=== PATIENT | male | born 1980 | race Caucasian/White ===

== ENCOUNTER 2016-06-19 18:06 | Emergency (ER) | payer BC ==
[2016-06-19 18:17] VITALS: BP 117/63; PULSE 66; RESP 16; TEMP 97.4
[2016-06-19] MEDS ORDERED: DIPH,PERTUS(ACELL)TETVAC-LF 0.5 ML VIAL IM ONE (18:18)
--- NOTE | 2016-06-19 18:25 | ED ---
General Adult HPI - General Chief complaint: Wound/Laceration Stated complaint: laceration left index finger Time Seen by Provider: 06/19/16 18:18 Source: patient, RN notes reviewed Mode of arrival: ambulatory Limitations: no limitations - History of Present Illness Initial comments: This is a 35-year-old male who presents with a laceration to the left middle finger. Patient states he was doing yard work about one hour ago and was using a machete to cut branches when he accidentally hit his left middle finger. Patient denies any numbness/weakness or tingling. Patient is unsure if he is up -to-date on his tetanus shot. Patient is still able to use the left hand and was wearing gloves when this happened. Patient is not on any anticoagulants. Patient denies any recent fever, chills, shortness breath, chest pain, abdominal pain, nausea/vomiting/diarrhea, back pain, hematuria, headache, or visual changes, or any other complaints. - Related Data Home Medications Medication Instructions Recorded Confirmed Fexofenadine/Pseudoephedrine 1 each PO BID 03/22/16 03/22/16 [Joselyn-D 12 Hour Tablet] Previous Rx's Medication Instructions Recorded Albuterol Inhaler [Ventolin Hfa 1 - 2 puff INHALATION Q4-6H PRN #1 03/22/16 Inhaler] inhaler Albuterol Nebulized [Ventolin 2.5 mg INHALATION Q4H #20 nebu 03/22/16 Nebulized] Azithromycin [Zithromax] 250 mg PO DIRECTED #6 tab 03/22/16 predniSONE 50 mg PO DAILY #5 tab 03/22/16 Cephalexin [Keflex] 500 mg PO Q12HR 5 Days 06/19/16 Allergies Allergy/AdvReac Type Severity Reaction Status Date / Time Milk Containing Products Allergy Unknown Verified 03/22/16 11:15 [Dairy] Childhood Review of Systems ROS Statement: Those systems with pertinent positive or pertinent negative responses have been documented in the HPI. ROS Other: All systems not noted in ROS Statement are negative. Past Medical History Past Medical History: No Reported History History of Any Multi-Drug Resistant Organisms: None Reported Past Surgical History: Ear Surgery Additional Past Surgical History / Comment(s): ear, nose throat Past Psychological History: No Psychological Hx Reported Smoking Status: Former smoker Past Alcohol Use History: None Reported Past Drug Use History: None Reported General Exam - General Exam Comments Initial Comments: General: The patient is awake and alert, in no distress, and does not appear acutely ill. Neck: The neck is supple, there is no tenderness or JVD. Cardiovascular: There is a regular rate and rhythm. No murmur, rub or gallop is appreciated. Respiratory: Lungs are clear to auscultation, respirations are non-labored, breath sounds are equal. No wheezes, stridor, rales, or rhonchi. Musculoskeletal: Patient has full range of motion, strength 5/5 and Sensation intact. Radial pulses 2+ bilaterally and capillary refill is normal at less than 2 seconds. Neurological: A&O x 3. CN II-XII intact, There are no obvious motor or sensory deficits. Coordination appears grossly intact. Speech is normal. Skin: There is an approximately 3 cm laceration to the patient's third digit of the left hand over the lateral aspect of the PIP joint. Skin is warm and dry and no rashes are noted. Psychiatric: Normal mood and affect. Limitations: no limitations Course Vital Signs 06/19/16 18:14 Temperature 97.4 F L Pulse Rate 66 Respiratory 16 Rate Blood Pressure 117/63 O2 Sat by Pulse 98 Oximetry Procedures - Procedures Initial comment: The skin was anesthetized with 1% lidocaine. The laceration was then cleansed with Betadine and irrigated with normal saline. The wound was inspected, and there was no evidence of injury to deep structures. No foreign body was noted in the wound. A total of 10 skin sutures were placed utilizing 5-0 Ethilon. Laceration is approx 3 cm. Medical Decision Making - Medical Decision Making This is a 35-year-old male presents with laceration to left middle finger. On physical exam patient has full range of motion, strength 5/5 and intact. Radial pulses are 2+ bilaterally and capillary refill is normal at less than 2 seconds. There is an approximately 3 cm laceration to the patient's third digit of the left hand over the lateral aspect of the PIP joint. An x-ray of the left hand was done and reviewed showing: Negative left hand exam. Report by Dr. Truong. I discussed the results with patient. The skin was anesthetized with 1% lidocaine. The laceration was then cleansed with Betadine and irrigated with normal saline. The wound was inspected, and there was no evidence of injury to deep structures. No foreign body was noted in the wound. A total of 10 skin sutures were placed utilizing 5-0 Ethilon. Laceration is approx 3 cm. I discussed that sutures need to be removed in 8-10 days. I discussed that patient will be put on a course of Keflex. I discussed that rinsing and showering are okay but to avoid submerging the wound in water. Discussed [id number] Tylenol and Motrin as needed for any pain. I discussed use of topical Neosporin. I discussed return parameters and signs of infection. Discussed that patient should keep the splint on the finger while he is at work to prevent damage to the finger and allow for healing. I discussed return parameters.Discussed that patient should follow up with PCP in one to 2 days or return to the [facility] for any worsening symptoms or for any further concerns. Patient was receptive to this plan and patient will be discharged home. Disposition Clinical Impression: Laceration Disposition: HOME SELF-CARE Condition: Good Instructions: Laceration (ED), Care For Your Stitches (ED) Additional Instructions: Please have sutures removed in 8-10 days. Please finish entire course of antibiotics. Please do not submerge the wound in water but rinsing and showering are okay. Please wear finger splint while at work to prevent injury to the finger and to allow for healing. Please use Tylenol and Motrin for pain. May ice the area. Please follow-up with family doctor in the next 2 days of symptoms have not improved. Please return to emergency room if the symptoms increase or worsen or for any other concerns. Prescriptions: Cephalexin [Keflex] 500 mg PO Q12HR 5 Days Referrals: None,Stated [Primary Care Provider] - 1-2 days Beth Pederson MD [STAFF PHYSICIAN] - 1-2 days Richi Kaye III, MD [STAFF PHYSICIAN] - 1-2 days Melinda Lewis MD [STAFF PHYSICIAN] - 1-2 days Time of Disposition: 19:18
--- NOTE | 2016-06-19 18:59 | XR ---
EXAMINATION TYPE: XR hand complete LT DATE OF EXAM: 06/19/2016 6:45 PM COMPARISON: NONE HISTORY: Laceration TECHNIQUE: 3 views FINDINGS: I see no fracture nor dislocation. Joint spaces are normal. The middle finger is intact. Th ere is no sign of a foreign body. IMPRESSION: Negative left hand exam.
== END 2016-06-19 19:32 | disposition home or self-care (01) ==
LOC: EC 18:06
DX: S61.213A Laceration without foreign body of left middle finger without damage to nail, initial encounter (principal); Z23 Encounter for immunization; Z87.891 Personal history of nicotine dependence; Z79.899 Other long term (current) drug therapy; Z91.011 Allergy to milk products; W45.8XXA Other foreign body or object entering through skin, initial encounter; Y92.096 Garden or yard of other non-institutional residence as the place of occurrence of the external cause
CPT/HCPCS: 12002; 90471; 90715; 99283

== ENCOUNTER 2016-08-18 07:59 | Emergency (ER) | payer BC ==
[2016-08-18 08:05] VITALS: BP 133/82; PULSE 54; RESP 16; TEMP 97.1
[2016-08-18] MEDS ORDERED: PROPARACAINE 0.5% OPHTH DROPS 15 ML BTL RIGHT EYE STA (08:17)
--- NOTE | 2016-08-18 08:34 | ED ---
General Adult HPI - General Chief complaint: Eye Problems Stated complaint: RT EYE PAIN Time Seen by Provider: 08/18/16 08:09 Source: patient, RN notes reviewed Mode of arrival: ambulatory Limitations: no limitations - History of Present Illness Initial comments: Patient's a 35-year-old male who presents emergency room today with chief complaint of foreign body sensation to the right eye. Patient does admit that he woke up this morning feeling something was in his right eye. He believes he scratched in his sleep. Patient states it has started to feel better since driving here to the emergency room. He states no longer has this feeling when he still having some watery drainage. He denies any other complaints or symptoms at this time. States his tetanus is up-to-date. Patient denies any recent fever, chills, shortness of breath, chest pain, back pain, abdominal pain , nausea or vomiting, numbness or tingling, dysuria or hematuria, constipation or diarrhea, headaches or visual changes, or any other complaints. - Related Data Home Medications Medication Instructions Recorded Confirmed Fluticasone Propionate [Flonase 1 spray EA NOSTRIL DAILY 08/18/16 08/18/16 Allergy Relief] Omeprazole [PriLOSEC] 20 mg PO DAILY 08/18/16 08/18/16 Previous Rx's Medication Instructions Recorded Tobramycin 0.3% Ophth Soln [Tobrex 1 - 2 drop BOTH EYES QID 7 Days 08/18/16 0.3% Ophth Soln] Allergies Allergy/AdvReac Type Severity Reaction Status Date / Time Milk Containing Products Allergy Unknown Verified 08/18/16 08:13 [Dairy] Childhood Review of Systems ROS Statement: Those systems with pertinent positive or pertinent negative responses have been documented in the HPI. ROS Other: All systems not noted in ROS Statement are negative. Past Medical History Past Medical History: No Reported History History of Any Multi-Drug Resistant Organisms: None Reported Past Surgical History: Ear Surgery Additional Past Surgical History / Comment(s): ear, nose throat Past Psychological History: No Psychological Hx Reported Smoking Status: Current every day smoker Past Alcohol Use History: None Reported Past Drug Use History: None Reported General Exam - General Exam Comments Initial Comments: General: The patient is awake and alert, in no distress, and does not appear acutely ill. Eye: Pupils are equal, round and reactive to light, extra-ocular movements are intact. No nystagmus. Mild redness to the right conjunctiva. No signs of icterus. Ears, nose, mouth and throat: There are moist mucous membranes and no oral lesions. Neck: The neck is supple, there is no tenderness or JVD. Cardiovascular: There is a regular rate and rhythm. No murmur, rub or gallop is appreciated. Respiratory: Lungs are clear to auscultation, respirations are non-labored, breath sounds are equal. No wheezes, stridor, rales, or rhonchi. Musculoskeletal: Normal ROM, no tenderness. Strength 5/5. Sensation intact. Pulses equal bilaterally 2+. Neurological: A&O x 3. CN II-XII intact, There are no obvious motor or sensory deficits. Coordination appears grossly intact. Speech is normal. Skin: Skin is warm and dry and no rashes or lesions are noted. Psychiatric: Cooperative, appropriate mood & affect, normal judgment. Limitations: no limitations Course Vital Signs 08/18/16 08:03 Temperature 97.1 F L Pulse Rate 54 L Respiratory 16 Rate Blood Pressure 133/82 O2 Sat by Pulse 97 Oximetry Procedures - Procedures Initial comment: His right eye was anesthetized locally with proparacaine. This did relieve his symptoms. Was stained and checked underneath Douglas lamp showing small abrasion at the 7:00 area. Patient's right eye was also checked underneath slit lamp revealing no foreign body. Lids everted and showing no foreign bodies. Patient 's pressure checked was 14 on the right. Disposition Clinical Impression: Corneal abrasion, right Disposition: HOME SELF-CARE Condition: Good Instructions: Corneal Abrasion (ED) Additional Instructions: Please use antibiotic drops as prescribed. Please use artificial tears. Conservative as much as needed. Please follow-up with environmental protection officer if symptoms not resolved in 2 days. Please return to emergency room if the symptoms increase or worsen or for any other concerns. Prescriptions: Tobramycin 0.3% Ophth Soln [Tobrex 0.3% Ophth Soln] 1 - 2 drop BOTH EYES QID 7 Days Referrals: None,Stated [Primary Care Provider] - 1-2 days Kamilah Calvillo MD [STAFF PHYSICIAN] - 1-2 days Time of Disposition: 08:35
== END 2016-08-18 08:50 | disposition home or self-care (01) ==
LOC: EC 07:59
DX: S05.01XA Injury of conjunctiva and corneal abrasion without foreign body, right eye, initial encounter (principal); F17.200 Nicotine dependence, unspecified, uncomplicated; Z79.51 Long term (current) use of inhaled steroids; Z79.899 Other long term (current) drug therapy; Z91.011 Allergy to milk products; X58.XXXA Exposure to other specified factors, initial encounter
CPT/HCPCS: 99283

== ENCOUNTER → 2016-10-24 | Outpatient (CLI) | payer BC ==
--- NOTE | 2016-10-24 12:20 | P.STRESS ---
- Stress Test Note Stress Test Results/Findings: Exam Performed: stress test Exam Date: 10/24/16 Reason for Exam: Chest pain Height: 5 ft 11 in Weight: 74.389 kg Protocol: Duncan Stage: 4 Duration of Exercise: 14:00 Resting Heart Rate: 52 Resting Blood Pressure: 132/76 Maximum Achieved Heart Rate: 175 Maximum Achieved Blood Pressure: 179/90 85% PMHR: 156 100% PMHR: 183 METS: 14.7 Technologist Comment: Stress Test Results/Findings: Resting EKG shows a normal sinus rhythm. No ST segment depression suggestive of ischemia is noted. No dysrhythmias are noted. Patient did not complain of any anginal pain during the test. Conclusion. Stress electrocardiogram is not suggestive of ischemia.
--- NOTE | 2016-10-24 12:22 | ECHOF ---
Referral Reason:R07.9 chest pain R94.31 abn ekg MEASUREMENTS -------- HEIGHT: 180.3 cm WEIGHT: 74.4 kg BP: 132/76 IVSd: 0.9 cm (0.6 - 1.1) LVIDd: 4.1 cm (3.9 - 5.3) LVPWd: 1.1 cm (0.6 - 1.1) IVSs: 1.1 cm LVIDs: 3.0 cm LVPWs: 1.2 cm Ao Diam: 3.2 cm (2.0 - 3.7) AV Cusp: 2.3 cm (1.5 - 2.6) LA Diam: 2.1 cm (2.7 - 3.8) MV EXCURSION: 24.295 mm (> 18.000) MV EF SLOPE: 223 mm/s (70 - 150) EPSS: 0.6 cm MV E Noah: 0.76 m/s MV DecT: 202 ms MV A Noah: 0.56 m/s MV E/A Ratio: 1.37 RAP: 5.00 mmHg RVSP: 15.17 mmHg FINDINGS -------- Sinus rhythm. This was a technically adequate study. Left ventricular wall thickness is normal. Overall left ventricular systolic function is normal with, an EF between 55 - 60 %. The right ventricle is normal in size and function. The left atrium is normal in size. The right atrium is normal in size. The aortic valve is trileaflet, and appears structurally normal. No aortic stenosis or regurgitation. There is trace mitral regurgitation. Trace tricuspid regurgitation present. The right ventricular systolic pressure, as measured by Doppler, is 15.17mmHg. Pulmonic valve appears structurally normal. The aortic root size is normal. Normal inferior vena cava with normal inspiratory collapse consistent with estimated right atrial pressure of 5 mmHg. The pericardium is normal. CONCLUSIONS -------- 1. Sinus rhythm. 2. Trace tricuspid regurgitation present. 3. The right ventricular systolic pressure, as measured by Doppler, is 15.17mmHg. 4. Pulmonic valve appears structurally normal. 5. The aortic root size is normal. 6. Normal inferior vena cava with normal inspiratory collapse consistent with estimated right atrial pressure of 5 mmHg. 7. The pericardium is normal. 8. This was a technically adequate study. 9. Left ventricular wall thickness is normal. 10. Overall left ventricular systolic function is normal with, an EF between 55 - 60 %. 11. The right ventricle is normal in size and function. 12. The left atrium is normal in size. 13. The right atrium is normal in size. 14. The aortic valve is trileaflet, and appears structurally normal. No aortic stenosis or regurgitation. 15. There is trace mitral regurgitation. INTERLOCKING MACHINE OPERATOR: Hilda Zepeda RDCS
== END | disposition home or self-care (01) ==
LOC: RADNMMAIN 10:35
PROVIDERS: ATTEND Family Medicine
DX: I08.1 Rheumatic disorders of both mitral and tricuspid valves (principal)
CPT/HCPCS: 93017; 93306

== ENCOUNTER 2018-05-08 14:23 | Emergency (ER) | payer BC ==
[2018-05-08 14:42] VITALS: RESP 18; TEMP 98.1
[2018-05-08] MEDS ORDERED: LIDOCAINE 5% PATCH TOPICAL STA (15:28)
[2018-05-08] MEDS ORDERED: IBUPROFEN 600 MG TAB PO STA (15:29)
[2018-05-08] MEDS ORDERED: METHOCARBAMOL 500 MG TAB PO STA (15:30)
--- NOTE | 2018-05-08 15:33 | ED ---
Back Pain HPI - General Chief Complaint: Back Pain/Injury Stated Complaint: Back pain Time Seen by Provider: 05/08/18 15:01 Source: patient Limitations: no limitations - History of Present Illness Initial Comments: Patient is a 37-year-old male presenting for back pain. He states that it is in the left flank and started last night. He denies any injury as well as urinary symptoms such as hematuria or dysuria. He denies any abdominal pain, nausea/vomiting/diarrhea. He states that the pain does not radiate and it is worse whenever he moves. He also denies any significant testicular pain, saddle anesthesia, bowel incontinence or urinary retention. - Related Data Home Medications Medication Instructions Recorded Confirmed Fluticasone Propionate [Flonase 1 spray EA NOSTRIL DAILY 08/18/16 08/18/16 Allergy Relief] Omeprazole [PriLOSEC] 20 mg PO DAILY 08/18/16 08/18/16 Previous Rx's Medication Instructions Recorded Tobramycin 0.3% Ophth Soln [Tobrex 1 - 2 drop BOTH EYES QID 7 Days ml 08/18/16 0.3% Ophth Soln] Ibuprofen [Motrin] 600 mg PO Q6HR PRN #20 tab 05/08/18 Lidocaine 5% Patch [Lidoderm] 1 patch TOPICAL DAILY #10 patch 05/08/18 Methocarbamol [Robaxin-750] 750 mg PO TID PRN #21 tablet 05/08/18 Allergies Allergy/AdvReac Type Severity Reaction Status Date / Time Milk Containing Products Allergy Unknown Verified 05/08/18 14:42 [Dairy] Childhood Review of Systems ROS Statement: Those systems with pertinent positive or pertinent negative responses have been documented in the HPI. Constitutional: Negative for chills, fatigue and fever. HENT: Negative for congestion. Respiratory: Negative for chest tightness, shortness of breath and wheezing. Negative for cough Cardiovascular: Negative for chest pain and palpitations. Gastrointestinal: Negative for abdominal pain. Negative for abdominal distention , diarrhea, nausea and vomiting. Genitourinary: Negative for dysuria. Musculoskeletal: Is for back pain, negative for neck pain and neck stiffness. Skin: Negative for color change. Neurological: Negative for dizziness, speech difficulty, weakness and light- headedness. Psychiatric/Behavioral: Negative for agitation and confusion. Negative for anxiety ROS Other: All systems not noted in ROS Statement are negative. Past Medical History Past Medical History: No Reported History History of Any Multi-Drug Resistant Organisms: None Reported Past Surgical History: Ear Surgery Additional Past Surgical History / Comment(s): ear, nose throat Past Psychological History: No Psychological Hx Reported Smoking Status: Current every day smoker Past Alcohol Use History: None Reported Past Drug Use History: None Reported General Exam - General Exam Comments Initial Comments: Constitutional: Pt appears well-developed and well-nourished. No distress. Head: Normocephalic and atraumatic. Eyes: EOM are normal. Neck: Normal range of motion. Neck supple. Cardiovascular: Normal rate, regular rhythm, S1 normal, S2 normal and normal heart sounds. Exam reveals no gallop and no friction rub. No murmur heard. Pulmonary/Chest: Effort normal and breath sounds normal. No tachypnea and no bradypnea. No respiratory distress. No wheezes or rales noted. Abdominal: Soft. Bowel sounds are normal. Pt exhibits no shifting dullness, no distension, no pulsatile liver, no fluid wave, no abdominal bruit and no ascites. There is no rigidity, no rebound, no guarding, no tenderness at McBurney's point and negative Crow's sign. There is no tenderness. Musculoskeletal: Normal range of motion. No tenderness to C-spine, T-spine, L- spine. Minor tenderness to the left sided paraspinal muscles of the lumbar spine : Tenderness to palpation of bilateral testicles. Testicles have normal lie Neurological: Pt is alert and oriented to person, place, and time. No cranial nerve deficit. Skin: Skin is warm and dry. No rash noted. Pt is not diaphoretic. No erythema. No pallor. Psychiatric: Pt has a normal mood and affect. Pt behavior is normal. Thought content normal. Limitations: no limitations Course Vital Signs 05/08/18 05/08/18 14:37 17:16 Temperature 98.1 F Pulse Rate 67 52 L Respiratory 18 18 Rate Blood Pressure 123/70 129/72 O2 Sat by Pulse 98 97 Oximetry Medical Decision Making - Medical Decision Making Advanced imaging was not completed as there was no red flag symptoms. Additionally, urinalysis was also not completed as the patient had no dysuria or hematuria. Physical exam findings as well as HPI were more consistent with muscle strain and therefore patient was given analgesics. Patient was last follow up with PCP in next 1-2 days and/or return to emergency Department symptoms worsen. Patient was agreeable plan. Disposition Clinical Impression: Mechanical back pain Disposition: HOME SELF-CARE Condition: Good Instructions (If sedation given, give patient instructions): Acute Low Back Pain (ED) Prescriptions: Ibuprofen [Motrin] 600 mg PO Q6HR PRN #20 tab PRN Reason: Pain Lidocaine 5% Patch [Lidoderm] 1 patch TOPICAL DAILY #10 patch Methocarbamol [Robaxin-750] 750 mg PO TID PRN #21 tablet PRN Reason: Pain Is patient prescribed a controlled substance at d/c from ED?: No Referrals: None,Stated [Primary Care Provider] - 1-2 days Time of Disposition: 15:33
[2018-05-08 17:17] VITALS: BP 129/72; PULSE 52
== END 2018-05-08 17:23 | disposition home or self-care (01) ==
LOC: EC 14:23
DX: M54.9 Dorsalgia, unspecified (principal); F17.200 Nicotine dependence, unspecified, uncomplicated; Z79.899 Other long term (current) drug therapy; Z91.011 Allergy to milk products
CPT/HCPCS: 99283

== ENCOUNTER 2018-09-17 07:27 | Day surgery (SDC) | payer BC ==
[2018-09-14 16:06] VITALS: BMI 23.7
[~2018-09-17 07:27] MED LIST: LACTATED RINGERS 1,000 ML IV SCH
[2018-09-17 07:57] VITALS: RESP 16; TEMP 97.6
[2018-09-17] MEDS ORDERED: PROPOFOL 10 MG/ML 20 ML VIAL IV ONE (08:30)
--- NOTE | 2018-09-17 08:47 | P.GSHP ---
History of Present Illness H&P Date: 09/17/18 Chief Complaint: GERD This is a 29-year-old male who's had issues with GERD. Patient presents today for EGD. Past Medical History Past Medical History: GERD/Reflux Additional Past Medical History / Comment(s): Night sweats, History of Any Multi-Drug Resistant Organisms: None Reported Past Surgical History: Adenoidectomy, Ear Surgery, Tonsillectomy Additional Past Surgical History / Comment(s): L ear surgery, Sinus surgery, L knee surgery. Past Anesthesia/Blood Transfusion Reactions: No Reported Reaction Smoking Status: Current every day smoker - Past Family History Mother Family Medical History: No Reported History Medications and Allergies Home Medications Medication Instructions Recorded Confirmed Type Fluticasone Propionate [Flonase 1 spray EA NOSTRIL DAILY 08/18/16 09/17/18 History Allergy Relief] Omeprazole [PriLOSEC] 20 mg PO DAILY 08/18/16 09/17/18 History Allergies Allergy/AdvReac Type Severity Reaction Status Date / Time Milk Containing Products Allergy Unknown Verified 09/14/18 15:40 [Dairy] Childhood Surgical - Exam Vital Signs Temp Pulse Resp BP Pulse Ox 97.6 F 47 L 16 121/64 99 09/17/18 07:55 09/17/18 07:55 09/17/18 07:55 09/17/18 07:55 09/17/18 07:55 - General well developed, well nourished, no distress - Eyes PERRL - ENT normal pinna - Neck no masses - Respiratory normal expansion - Cardiovascular Rhythm: regular - Abdomen Abdomen: soft, non tender Assessment and Plan Assessment: GERD. We'll perform EGD.
--- NOTE | 2018-09-17 08:55 | P.OP ---
Date of Procedure: 09/17/18 Preoperative Diagnosis: GERD Postoperative Diagnosis: Duodenitis with ulceration Antral gastritis Procedure(s) Performed: EGD Anesthesia: MAC Surgeon: Elan Arteaga Pathology: other (Antral gastritis, duodenitis ulceration) Condition: stable Disposition: PACU Description of Procedure: The patient's placed on the endoscopy table in the lateral position. He received IV sedation. The gastroscope placed oropharynx and passed in the esophagus and into the stomach. The scope was then placed through the pylorus. The first and second portion of the duodenum appeared inflamed. There is evidence of small ulcers. This area is biopsied. The scope was then brought back the antrum was minimally inflamed a biopsies performed. Scope was then retroflexed and the remainder of the stomach appeared normal. There is no significant hiatal hernia. The GE junction was at 40 cm. The distal esophagus appeared normal. The proximal esophagus appeared normal. Scope withdrawn for patient.
[2018-09-17 09:22] VITALS: BP 108/66; PULSE 41
== END 2018-09-17 09:44 | disposition home or self-care (01) ==
LOC: ORWHC2ENDO 07:27
PROVIDERS: ATTEND Surgery
DX: K29.50 Unspecified chronic gastritis without bleeding (principal); K29.80 Duodenitis without bleeding; K26.9 Duodenal ulcer, unspecified as acute or chronic, without hemorrhage or perforation; K21.9 Gastro-esophageal reflux disease without esophagitis; F17.200 Nicotine dependence, unspecified, uncomplicated; Z79.899 Other long term (current) drug therapy; Z91.011 Allergy to milk products
CPT/HCPCS: 88305; 43239; J2704

== ENCOUNTER 2019-04-11 07:27 | Emergency (ER) | payer BC ==
[2019-04-11 07:42] VITALS: RESP 18; TEMP 97.5
[2019-04-11] MEDS ORDERED: HYDROcodone/APAP 5-325MG 1 EACH TAB PO STA (07:56)
--- NOTE | 2019-04-11 08:00 | ED ---
General Adult HPI - General Chief complaint: Back Pain/Injury Stated complaint: Back Pain Time Seen by Provider: 04/11/19 07:43 Source: patient Mode of arrival: ambulatory Limitations: no limitations - History of Present Illness Initial comments: 38-year-old male who denies past medical history presenting today for chief complaint of left lower quadrant abdominal pain low back pain. Patient states yesterday when putting on pajamas he noticed pain after his left lower back. Patient states he didn't feel like he injured his back in any way. He states that the pain is sharp in nature fluctuates in intensity. He states he feels that the pain is also his left lower quadrant of his abdomen. He states the pain increases with movement or walking. Patient denies any IV drug use history of cancer history of chronic steroid use nausea vomiting hematuria fevers loss of bowel bladder control urinary retention, denies history of kidney stones or HTN. Remaining ROS (-). Upon arrival patient appears well there is no signs of acute distress, HR noted to be 53, BP within reasonable limits. - Related Data Home Medications Medication Instructions Recorded Confirmed Fluticasone Propionate [Flonase 1 spray EA NOSTRIL DAILY 08/18/16 09/17/18 Allergy Relief] Omeprazole [PriLOSEC] 20 mg PO DAILY 08/18/16 09/17/18 Previous Rx's Medication Instructions Recorded Omeprazole 40 mg PO DAILY #60 capsule. 09/17/18 Cyclobenzaprine [Flexeril] 10 mg PO TID PRN 7 Days #21 tab 04/11/19 Allergies Allergy/AdvReac Type Severity Reaction Status Date / Time Milk Containing Products Allergy Unknown Verified 04/11/19 07:36 [Dairy] Childhood Review of Systems ROS Statement: Those systems with pertinent positive or pertinent negative responses have been documented in the HPI. ROS Other: All systems not noted in ROS Statement are negative. Past Medical History Past Medical History: GERD/Reflux Additional Past Medical History / Comment(s): Night sweats, History of Any Multi-Drug Resistant Organisms: None Reported Past Surgical History: Adenoidectomy, Ear Surgery, Tonsillectomy Additional Past Surgical History / Comment(s): L ear surgery, Sinus surgery, L knee surgery. Past Anesthesia/Blood Transfusion Reactions: No Reported Reaction Past Psychological History: No Psychological Hx Reported Smoking Status: Current every day smoker Past Alcohol Use History: None Reported Past Drug Use History: None Reported - Past Family History Mother Family Medical History: No Reported History General Exam - General Exam Comments Initial Comments: General: The patient is awake and alert, in no distress, and does not appear acutely ill. Eye: +3 mm pupils are equal, round and reactive to light, extra-ocular movements are intact. No nystagmus. There is normal conjunctiva bilaterally. No signs of icterus. Cardiovascular: There is a regular rate and rhythm. No murmur, rub or gallop is appreciated. Respiratory: Lungs are clear to auscultation, respirations are non-labored, breath sounds are equal. No wheezes, stridor, rales, or rhonchi. Gastrointestinal: Soft, non-distended, LLQ of the abdomen is tender remaining abdomen in nontender and without masses or organomegaly noted. There is no rebound or guarding present. No CVA tenderness. Musculoskeletal: Upon inspection of the cervical thoracic and lumbar spine there is no abnormalities aside from skin tag mid thoracic spine. There is left-sided paravertebral tenderness to palpation, no palpable spasm. Normal ROM, of the LE b/l. (-) SLR. Strength 5/5 of the LE b/l. Sensation intact of the LE b/l equal in comparision, including saddle region.. Radial and DP pulses equal bilaterally 2+. Pt can ambulate without difficulty. Neurological: A&O x 3. CN II-XII intact grossly, There are no obvious motor or sensory deficits. Coordination appears grossly intact. Speech is normal. Skin: Skin is warm and dry and no rashes or lesions are noted. Psychiatric: Cooperative, appropriate mood & affect, normal judgment. Limitations: no limitations Course Vital Signs 04/11/19 07:36 Temperature 97.5 F L Pulse Rate 53 L Respiratory 18 Rate Blood Pressure 138/79 O2 Sat by Pulse 98 Oximetry Medical Decision Making - Medical Decision Making 38-year-old male presenting for low back pain and left-sided. Patient states it began after putting on pajamas. It didn't appear to be muscle skeletal except patient was complaining of left lower quadrant abdominal pain. I did not feel this was distinctly consistent with a muscle strain. Urinalysis dip revealed no hematuria. Laboratory studies stable no leukocytosis. CT the abdomen and pelvis was obtained to rule out acute intra-abdominal process mimicking low back strain. Vasculature appeared within normal limits. No nephrolithiasis no diverticulitis noted. At this time I feel patient is stable for discharge with symptomatically treatment such as hot and cold pads and a prescription for Flexeril. I recommend outpatient primary care follow-up and return parameters as discussed patient verbalized understanding is agreeable to this care plan as well as impression stating he feels assisted back strain and he was discharged appearing well after discussing the case with attending provider Dr. Angulo - Lab Data Result diagrams: 04/11/19 08:01 04/11/19 08:01 Lab Results 04/11/19 04/11/19 04/11/19 Range/Units 07:54 08:01 08:01 WBC 6.5 (3.8-10.6) k/uL RBC 4.64 (4.30-5.90) m/uL Hgb 15.4 (13.0-17.5) gm/dL Hct 44.9 (39.0-53.0) % MCV 96.7 (80.0-100.0) fL MCH 33.1 (25.0-35.0) pg MCHC 34.2 (31.0-37.0) g/dL RDW 13.1 (11.5-15.5) % Plt Count 228 (150-450) k/uL Neutrophils % 63 % Lymphocytes % 26 % Monocytes % 6 % Eosinophils % 2 % Basophils % 1 % Neutrophils # 4.1 (1.3-7.7) k/uL Lymphocytes # 1.7 (1.0-4.8) k/uL Monocytes # 0.4 (0-1.0) k/uL Eosinophils # 0.1 (0-0.7) k/uL Basophils # 0.0 (0-0.2) k/uL Sodium 142 (137-145) mmol/L Potassium 4.4 (3.5-5.1) mmol/L Chloride 108 H (98-107) mmol/L Carbon Dioxide 25 (22-30) mmol/L Anion Gap 9 mmol/L BUN 16 (9-20) mg/dL Creatinine 0.85 (0.66-1.25) mg/dL Est GFR (CKD-EPI)AfAm >90 (>60 ml/min/1.73 sqM) Est GFR (CKD-EPI)NonAf >90 (>60 ml/min/1.73 sqM) Glucose 84 (74-99) mg/dL Calcium 9.4 (8.4-10.2) mg/dL Total Bilirubin 0.6 (0.2-1.3) mg/dL AST 21 (17-59) U/L ALT 15 (4-49) U/L Alkaline Phosphatase 56 (38-126) U/L Total Protein 7.3 (6.3-8.2) g/dL Albumin 4.7 (3.5-5.0) g/dL Lipase 64 (23-300) U/L Urine Color Light Yellow Urine Appearance Clear (Clear) Urine pH 7.0 (5.0-8.0) Ur Specific [place] 1.006 (1.001-1.035) Urine Protein Negative (Negative) Urine Glucose (UA) Negative (Negative) Urine Ketones Negative (Negative) Urine Blood Negative (Negative) Urine Nitrite Negative (Negative) Urine Bilirubin Negative (Negative) Urine Urobilinogen <2.0 (<2.0) mg/dL Ur Leukocyte Esterase Negative (Negative) Disposition Clinical Impression: Low back pain Disposition: HOME SELF-CARE Condition: Good Instructions (If sedation given, give patient instructions): Acute Low Back Pain (ED) Additional Instructions: Please use medication as discussed. Please follow-up with family doctor in the next 2 days. Please return to emergency room if the symptoms increase or worsen or for any other concerns. Prescriptions: Cyclobenzaprine [Flexeril] 10 mg PO TID PRN 7 Days #21 tab PRN Reason: Muscle Spasm Is patient prescribed a controlled substance at d/c from ED?: No Referrals: Deborah Souza DO [Primary Care Provider] - 1-2 days Time of Disposition: 09:17
[2019-04-11 08:10] LABS: Appearance,Urine Clear (Clear); Bilirubin,Urine Negative (Negative); Blood,Urine Negative (Negative); Color,Urine Light Yellow; Glucose,Urine (UA) Negative (Negative); Ketones,Urine Negative (Negative); Leukocyte Esterase,Urine Negative (Negative); Nitrite,Urine Negative (Negative); Protein,Urine Negative (Negative); Specific Gravity,Urine 1.006 (1.001-1.035); Urobilinogen,Urine <2.0 mg/dL (<2.0)
--- NOTE | 2019-04-11 08:42 | CT ---
EXAMINATION TYPE: CT abdomen pelvis w con DATE OF EXAM: 04/11/2019 COMPARISON: None. HISTORY: Back pain CT DLP: 694.1 mGycm, Automated Exposure Control for Dose Reduction was Utilized. CONTRAST: CT scan of the abdomen and pelvis is performed without oral but with IV Contrast, patient injected wi th 100 mL of Isovue 300. FINDINGS: LUNG BASES: No significant abnormality is appreciated. LIVER/GB: No significant abnormality is appreciated. PANCREAS: No significant abnormality is seen. SPLEEN: No significant abnormality is seen. ADRENALS: No significant abnormality is seen. KIDNEYS: Symmetric cortical medullary uptake and excretion without hydronephrosis seen bilaterally. N o intraluminal calculi and bladder. Few scattered right-sided pelvic phleboliths. BOWEL: Suboptimal evaluation of bowel without enteric contrast. No suspicious small or large bowel di latation. Low-lying cecum in the right pelvis anteriorly. Appendix within normal limits ascending pos teriorly from base of cecum towards the right lower quadrant. Moderate prominence of fecal material i n the rectum. No significant diverticulosis or convincing CT evidence for acute diverticulitis. PROSTATE/SEMINAL VESICLES: No gross abnormality seen. LYMPH NODES: No greater than 1cm abdominal or pelvic lymph nodes are appreciated. OSSEOUS STRUCTURES: No significant abnormality is seen. OTHER: No significant additional abnormality is seen. IMPRESSION: No significant acute finding is seen to account for patient's clinical symptoms. No obst ructing calculi clearly seen. No convincing evidence for diverticulosis or acute diverticulitis. Poss ible mild to moderate rectal fecal stasis otherwise unremarkable study.
[2019-04-11 09:07] LABS: Basophils % (A) 1 %; Eosinophils # (A) 0.1 k/uL (0-0.7); Eosinophils % (A) 2 %; HCT 44.9 % (39.0-53.0); HGB 15.4 gm/dL (13.0-17.5); Lymphocytes # (A) 1.7 k/uL (1.0-4.8); Lymphocytes % (A) 26 %; MCH 33.1 pg (25.0-35.0); MCHC 34.2 g/dL (31.0-37.0); MCV 96.7 fL (80.0-100.0); Mean Platelet Volume 7.5; Monocytes # (A) 0.4 k/uL (0-1.0); Monocytes % (A) 6 %; Neutrophils # (A) 4.1 k/uL (1.3-7.7); Neutrophils % (A) 63 %; Platelet Count 228 k/uL (150-450); RBC 4.64 m/uL (4.30-5.90); RDW 13.1 % (11.5-15.5); WBC 6.5 k/uL (3.8-10.6)
[2019-04-11 09:16] LABS: ALT 15 U/L (4-49); AST 21 U/L (17-59); African American GFR (CKD) >90 (>60 ml/min/1.73 sqM); Albumin 4.7 g/dL (3.5-5.0); Alkaline Phosphatase 56 U/L (38-126); Anion Gap 9 mmol/L; Blood Urea Nitrogen 16 mg/dL (9-20); Calcium 9.4 mg/dL (8.4-10.2); Carbon Dioxide 25 mmol/L (22-30); Chloride 108 mmol/L (98-107); Glucose 84 mg/dL (74-99); Non-African American GFR(CKD) >90 (>60 ml/min/1.73 sqM); Potassium 4.4 mmol/L (3.5-5.1); Sodium 142 mmol/L (137-145); Total Bilirubin 0.6 mg/dL (0.2-1.3); Total Protein 7.3 g/dL (6.3-8.2)
[2019-04-11 09:43] VITALS: BP 124/79; PULSE 50
== END 2019-04-11 09:50 | disposition home or self-care (01) ==
LOC: EC 07:27
DX: M54.5 Low back pain (principal); R10.32 Left lower quadrant pain; K21.9 Gastro-esophageal reflux disease without esophagitis; F17.200 Nicotine dependence, unspecified, uncomplicated; Z79.899 Other long term (current) drug therapy; Z91.011 Allergy to milk products
CPT/HCPCS: 36415; 80053; 83690; 85025; 81003; 74177; 99284; Q9967

== ENCOUNTER → 2020-07-27 | Outpatient (CLI) | payer BC ==
--- NOTE | 2020-07-27 16:04 | XR ---
Orbits HISTORY: MRI clearance 3 views of the orbits Bone mineralization is normal. Paranasal sinuses as visualized are well aerated. No radiopaque foreig n body seen. impression: No counter indication to MRI is evident.
== END | disposition home or self-care (01) ==
LOC: RADXRMAIN 14:39
PROVIDERS: ATTEND Physical Medicine & Rehabilitation
DX: Z18.10 Retained metal fragments, unspecified (principal)
CPT/HCPCS: 70030

== ENCOUNTER → 2021-10-02 | Outpatient (CLI) | payer BC ==
--- NOTE | 2021-10-02 17:05 | P.SLEEP ---
History of Present Illness DATE: 10/02/2021 CONSULTATION/NEW PATIENT EVALUATION HISTORY OF PRESENT ILLNESS/SLEEP-WAKE EVALUATION: 41year old gentleman had been evaluated in the sleep center for possible obstructive sleep apnea hypopnea syndrome. SLEEP SCHEDULE: Usually sleep schedule on weekdaysfrom 10 PM to 4:30 AM], during days of from 1011 PM until 6 AM]. FALLING ASLEEP: Usually no problems with the falling asleep, although patient has TV set and bedroom] DURING SLEEP:Patient usually sleeps on the back and side position of the liver very loud snoring according to his . Patient occasionally wakes up from sleep but clearly. Positive history of grinding teeth during the sleep, dry mouth, heartburn, sleep talking, sweating. ] No history of hypnogogical hallucinations, sleep paralysis, or cataplexy. DURING THE DAY/WAKE STATE: In the morning patient wake up tired, has problem to pay attention, falling asleep during the day, has problem with concentration, irritability, anxiety]. [place] sleepiness scale i significantly increased to 23] Patient falling asleep while sitting down]. PAST MEDICAL HISTORY: Acid reflux] PAST SURGICAL HISTORY: Tonsillectomy, adenoidectomy, left knee arthroscopic surgery.] MEDICATIONS: Prilosec] SOCIAL HISTORY: Positive ]for smoking for 18 years quit 2.5 years ago, alcohol consumption none. FAMILY HISTORY:Asthma, pneumonia, headaches] REVIEW OF SYSTEMS:Loud snoring, significant excessive daytime sleepiness. ]No fevers. No double vision. No recent chest pain. No shortness of breath. No abdominal pain. No bleeding episodes. No blood in urine. No seizure episodes. PHYSICAL EXAMINATION: GENERAL: A pleasant patient without any distress. VITAL SIGNS: B 125/64] , HR 57] , R 18] , weigh 190.6] pounds, heigh 5 ]stephanie 10 ]inches, body mass inde 27.4] . HEENT: PERRLA, EOMI. Evaluation of oropharynx showed tongue protrudes midline, low position of soft palate Mallampat 34]. NECK: Supple. No JVD. Thyroid is not palpable. 16.75] inches in circumference. LUNGS: Clear to percussion and to auscultation. Good air exchange. No wheezing or rhonchi. HEART: S1, S2 regular. No murmurs, gallops or rubs. ABDOMEN: Soft and nontender. Bowel sounds are present. No organomegaly appreciated. EXTREMITIES: No clubbing or cyanosis. SURVEILLANCE DIRECTOR: Awake, alert, and oriented x3. Cranial nerves 2 to 7 intact. There is no fasciculation or atrophy noted. No focal deficits observed. ASSESSMENT: 1. Loud snoring, significant excessive daytime sleepiness, small oropharyngeal air space Mallampati 34. Obstructive sleep apnea hypopnea syndrome]. 2. Acid reflux]. 3 status post tonsillectomy]. 4. Status post adenoidectomy]. 5 status post left knee arthroscopic surgery]. 6. Significant excessive daytime sleepiness with an [place] Sleepiness Scale of 23 dictates necessity to include narcolepsy and idiopathic hypersomnia in differential diagnosis.]. PLAN: 1. Home sleep apnea test for evaluation of patient's breathing during sleep. MS LT if home sleep apnea test is negative for AMARA. 2. CPAP/BiPAP titration if sleep study confirms obstructive sleep apnea- hypopnea syndrome. 3. Preferable position during sleep on the side. 4. No driving if patient feels any sleepiness. Patient is aware of civil and criminal liability for unsafe driving. 5. Sleep hygiene with regular sleep time for at least 7.5-8 hours. 6. Watching weight. Sincerely, Flaquito Reeves MD, PhD, FAASM. Diplomat of [place] [employer], Sleep Medicine Board by [place] [place] Director [employer] [facility] Past Medical History Past Medical History: GERD/Reflux Additional Past Medical History / Comment(s): Night sweats, History of Any Multi-Drug Resistant Organisms: None Reported Past Surgical History: Adenoidectomy, Ear Surgery, Tonsillectomy Additional Past Surgical History / Comment(s): L ear surgery, Sinus surgery, L knee surgery. Past Anesthesia/Blood Transfusion Reactions: No Reported Reaction Past Psychological History: No Psychological Hx Reported Past Alcohol Use History: None Reported Past Drug Use History: None Reported - Past Family History Mother Family Medical History: No Reported History Medications and Allergies Home Medications Medication Instructions Recorded Confirmed Type Fluticasone Propionate [Flonase 1 spray EA NOSTRIL DAILY 08/18/16 09/17/18 History Allergy Relief] Omeprazole [PriLOSEC] 20 mg PO DAILY 05/22/17 06/21/19 History Omeprazole 40 mg PO DAILY #60 capsule. 09/17/18 Rx Cyclobenzaprine [Flexeril] 10 mg PO TID PRN 7 Days #21 tab 04/11/19 Rx Allergies Allergy/AdvReac Type Severity Reaction Status Date / Time Milk Containing Products Allergy Unknown Verified 04/11/19 07:36 [Dairy] Childhood Sleep Note - Sleep Note Sleep Note: Temperature: Pulse Rate: Respiratory Rate: Blood Pressure: SpO2: Height: Weight: BMI: Neck Circumference:
== END ==
LOC: SLEEP 15:54
PROVIDERS: ATTEND Internal Medicine
DX: G47.33 Obstructive sleep apnea (adult) (pediatric) (principal); K21.9 Gastro-esophageal reflux disease without esophagitis; Z90.09 Acquired absence of other part of head and neck; Z98.890 Other specified postprocedural states; Z91.011 Allergy to milk products
CPT/HCPCS: 99211

== ENCOUNTER → 2022-03-06 | Outpatient (CLI) | payer BC ==
--- NOTE | 2022-03-06 17:37 | P.PN ---
Subjective DATE: 03/06/2022 FOLLOW UP VISIT. Patient with obstructive sleep apnea hypopnea syndrome return to sleep center for follow-up visit. Recently patient had sleep study which documented obstructive sleep apnea hypopnea syndrome. Patient was initiated on PAP therapy and today is first visit after treatment was started. I discussed results of sleep studies with patient and family in details. Patient was able to use PAP equipment most of the nights, but not always for the whole night. Patient feels discomfort related to the pressure and humidity. She sometimes wakes up from sleep because feels that pressure is too high. [place] sleepiness scale is 14, which is above normal range. I checked information from PAP unit. PAP unit pressure 6-12, average 11.3 cm H2O. Usage is 83% and 60 % for more then 4 hours, average 4.5 hours per night. Many nights time of usage very minimally below 4 hours. Counting that night good usage is more than 70%. Leak is 25.2 l/m, which is in acceptable range. Apnea Hypopnea Index is 3.0, which is normal. MEDICATIONS:1. Flonase 2. Omeprazole 3. Flexeril During physical exam: GENERAL: A pleasant patient without any distress. VITAL SIGNS: BP 121/73, HR 56, RR 14 , weight 197.4, temperature 97.4, oxygen saturation at room air 98 . HEENT: PERRLA, EOMI.low position of soft palate, Mallapati 3-4 . NECK: Supple. No JVD. LUNGS: Clear to percussion and to auscultation. Good air exchange. No wheezing or rhonchi. HEART: S1, S2 regular. ABDOMEN: Soft and nontender.[] EXTREMITIES: No clubbing or cyanosis. CERTIFIED DRUG COUNSELOR: Awake, alert, and oriented x3. No focal deficit. Impressions: 1. Obstructive sleep apnea-hypopnea syndrome in moderate range apnea-hypopnea index 23.7 by home sleep apnea test which may underestimate severity of sleep apnea. Patient demonstrated borderline compliance with treatment, normal respiration on CPAP. 2. Acid reflux. 3. Status post tonsillectomy and adenoidectomy. 4. Status post left knee arthroscopic surgery. 5. Patient improved his alertness while on treatment with CPAP [place] Sleepiness Scale reduced from 23 to 14, but still indicates some sleepiness. Plan: 1. Continue using PAP equipment every night for the whole night. 2. To change air filter at least 1-2 times per month. 3. PAP unit should stay lower then position of the head. 4. Advised patient to remove all remaining water from humidifier canister daily and make it dry after each usage. Refill canister with fresh distilled water before each usage. 5. Sleep hygiene with regular time in bed for at least 8 hours. 6. Precautions related to driving. No driving if feel any sleepiness. 7. I will maintain prescription for PAP supplies including mask, tube, filters. 8. Follow up visit in 6 months or earlier if patient has any problems. 9. Watching weight. 10. We may consider multiple sleep latency test if patient will continue to have sleepiness on treatment with CPAP. Thank you very much for allowing me to participate in the management of your patient. Flaquito Reeves MD, PhD, FAASM. Diplomat of [employer], Sleep Medicine Board by [employer] Medical Scribe of [facility]
== END ==
LOC: SLEEP 16:37
PROVIDERS: ATTEND Internal Medicine
DX: G47.33 Obstructive sleep apnea (adult) (pediatric) (principal); K21.9 Gastro-esophageal reflux disease without esophagitis; Z98.890 Other specified postprocedural states; Z99.89 Dependence on other enabling machines and devices; Z90.89 Acquired absence of other organs; F17.200 Nicotine dependence, unspecified, uncomplicated; Z91.011 Allergy to milk products
CPT/HCPCS: 99212